=== PATIENT | female | born 1960 | race African-American/Black ===

== ENCOUNTER 2018-02-18 14:55 | Outpatient (CLI) | payer OTHER | END 2018-02-18 15:10 | disposition home or self-care (01) | LOC: MAMO-SONO 14:55 | DX: Z12.31 Encounter for screening mammogram for malignant neoplasm of breast (principal); N64.4 Mastodynia ==

== ENCOUNTER 2021-10-31 10:42 | Outpatient (CLI) | payer OTHER | END 2021-10-31 10:43 | disposition home or self-care (01) | LOC: NUCLEAR 10:42 | PROVIDERS: ATTEND General Practice | DX: M81.0 Age-related osteoporosis without current pathological fracture (principal) ==

== ENCOUNTER 2021-10-31 11:42 | Outpatient (CLI) | payer OTHER | END 2021-10-31 11:55 | disposition home or self-care (01) | LOC: MAMO-SONO 11:42 | PROVIDERS: ATTEND General Practice | DX: N60.01 Solitary cyst of right breast (principal); Z12.31 Encounter for screening mammogram for malignant neoplasm of breast; N64.4 Mastodynia ==

== ENCOUNTER 2025-03-05 12:38 | Outpatient (CLI) | payer OTHER | END 2025-03-05 12:41 | disposition home or self-care (01) | LOC: MAMO-SONO 12:38 | PROVIDERS: ATTEND General Practice | DX: N64.4 Mastodynia (principal); Z12.31 Encounter for screening mammogram for malignant neoplasm of breast ==

== ENCOUNTER 2025-03-06 11:25 | Outpatient (CLI) | payer OTHER | END 2025-03-06 11:26 | disposition home or self-care (01) | LOC: NUCLEAR 11:25 | PROVIDERS: ATTEND General Practice | DX: M81.0 Age-related osteoporosis without current pathological fracture (principal) ==